=== PATIENT | male | born 1985 | race Caucasian/White ===

== ENCOUNTER 2018-06-06 01:37 | Emergency (ER) | payer OTHER ==
[~2018-06-06] VITALS: Ht 185.4 cm; Wt 131.5 kg
[2018-06-06 01:40] VITALS: BP 124/75
--- NOTE | 2018-06-06 01:43 | NUR ---
TO BED # 4 AMBULATORY , REPORT GIVEN TO ORIANA FORD
[2018-06-06] MEDS ORDERED: NACL 0.9% 1,000 ML IV SCH (01:51)
[2018-06-06] MEDS ORDERED: FAMOTIDINE 20 MG/2 ML VIAL IVP ONE (01:55)
[2018-06-06] MEDS ORDERED: MORPHINE SULFATE 4 MG/ML SYR IVP ONE (01:55)
[2018-06-06] MEDS ORDERED: ONDANSETRON 4 MG/2 ML VIAL IVP ONE (01:55)
--- NOTE | 2018-06-06 02:00 | NUR ---
PT ADMITS NAUSEA DENIES V/D; SKIN IS INTACT, PINK/WARM/DRY; AAOX4, PERRL, WITH EVEN AND STEADY GAIT; LUNGS CLEAR BL, BREATHING UNLABORED; HR EVEN AND REGULAR, BL PERIPHERAL PULSES PRESENT; BS ACTIVE X4, TENDERNESS TO PALPATION, DISTENDED ABD, NO HEPATOSPLENOMEGALLY PALPATED, RESONANT TO PERCUSSION; PT DENIES ANY FEVER, CP, SOB, OR COUGH AT THIS TIME; PT STATES 8/10 EPIGASTRIC PAIN SHOOTING TO BACK AT THIS TIME; VSS; PATIENT POSITIONED FOR COMFORT; HOB ELEVATED; BEDRAILS UP X2; BED DOWN.
[2018-06-06 02:10] LABS: APPEARANCE,URINE CLEAR (CLEAR); BILIRUBIN,URINE NEGATIVE (NEGATIVE); BLOOD, URINE TRACE-I (NEGATIVE); COLOR,URINE YELLOW (YELLOW); LEUKOCYTE ESTERASE ,URINE NEGATIVE (NEGATIVE); NITRITE, URINE NEGATIVE (NEGATIVE); UGLUCOSE NEGATIVE (NEGATIVE)
[2018-06-06 02:17] LABS: WHITE BLOOD COUNT (AUTO) 15.7 K/uL (4.8-10.8)
[2018-06-06 02:18] LABS: HEMATOCRIT 39.3 % (36-52); HEMOGLOBIN 13.1 g/dL (12.0-18.0); MEAN CORPUSCULAR HEMOGLOBIN 27 pg (27-31); MEAN CORPUSCULAR HGB CONC 33 g/dL (33-37); MEAN CORPUSCULAR VOLUME 80.5 fL (80-94); PLATELET COUNT (AUTO) 238 K/uL (140-450); RED BLOOD CELL COUNT(AUTO) 4.88 MIL/uL (4.20-6.10); RED CELL DISTRIBUTION WIDTH 12.5 % (11.6-13.7)
[2018-06-06 02:19] LABS: BASOPHILS # (AUTO) 0.1 K/uL (0.00-0.22); BASOPHILS % (AUTO) 0.4 % (0.0-2.0); EOSINOPHILS # (AUTO) 0.1 K/uL (0-0.4); EOSINOPHILS % (AUTO) 0.5 % (0.0-4.0); MONOCYTES # (AUTO) 1.2 K/uL (0.8-1.0); MONOCYTES % (AUTO) 7.4 % (1.7-9.3); NEUTROPHILS # (AUTO) 12.3 K/uL (1.8-7.7); NEUTROPHILS % (AUTO) 78.7 % (42.2-75.2)
[2018-06-06 02:23] LABS: RBC,URINE 0-5 (RARE) /HPF (0-5); WBC,URINE 0-5 (RARE) /HPF (0-5)
[2018-06-06 02:26] LABS: ANION GAP 7.7 (8-16); CARBON DIOXIDE 28.9 mmol/L (21-32); POTASSIUM 3.6 mmol/L (3.5-5.1)
[2018-06-06 02:27] LABS: ALBUMIN 4.1 g/dL (3.4-5.0); CREATININE 1.1 mg/dL (0.7-1.3); TOTAL BILIRUBIN 0.2 mg/dL (0.0-1.0)
--- NOTE | 2018-06-06 02:49 | NUR ---
PT TO CT VIA ALEX IN STABLE CONDITION
--- NOTE | 2018-06-06 03:00 | NUR ---
PT RETURNED IN STABLE CONDITION
--- NOTE | 2018-06-06 03:30 | NUR ---
REPORT RECEIVED FROM LOGAN GASTELUM
[2018-06-06] MEDS ORDERED: PIPERACILLIN/TAZOBACTAM 3.375 GM in DEXT 5% MINI-BAG PLUS 50 ML IV ONE (03:40)
[2018-06-06] MEDS ORDERED: ACETAMINOPHEN 650 MG SUPP RC ONE (04:00)
[2018-06-06] MEDS ORDERED: PIPERACILLIN/TAZOBACTAM 3.375 GM VIAL IV ONE (04:05)
--- NOTE | 2018-06-06 04:15 | NUR ---
ABX STARTED. PER DR. FAJARDO, NO BLOOD CULTURES DUE AT THIS TIME. PT INFORMED HE WILL BE TRANSFERRED TO [facility] PER HIS INSURANCE.
--- NOTE | 2018-06-06 06:45 | NUR ---
Patient to be transferred to [facility] [phone]. Is being transferred due to INSURANCE REQUEST. Receiving facility has accepting physician and available space. ER physician has signed transfer form. Patient or responsible constitution party has agreed to transfer and signed form. Patient belongings inventoried and will be sent with patient. Copy of nursing notes, lab reports, EKG, Physicians Orders and X-rays to be sent with patient. [facility] ambulance service here for transfer.
[2018-06-06 06:47] VITALS: BP 106/62
== END 2018-06-06 06:45 | disposition short-term general hospital (02) ==
LOC: MED 01:37
DX: K35.80 Unspecified acute appendicitis (principal)
CPT/HCPCS: 36415; 74176; 80053; 81001; 82150; 83690; 85025; 96361; 96365; 96375; 99285; J2270; J2405; J2543; J3490; J7030